=== PATIENT | female | born 1965 | race Caucasian/White ===

== ENCOUNTER 2020-10-15 16:45 | Inpatient (IN) ==
--- OUTSIDE RECORDS SUMMARY | 2020-10-15 16:48 | External Medical Summary | Continuity of Care Document ---
:1965 Author Name Sarah Gonzalez, Provider Address Unavailable Unavailable , Care Team Providers Name Role Phone Lisseth [email or web address] [email or web address] Unavailable Unavailable Unavailable Unavailable Unavailable Assessments Assessed Problems:Breast hypertrophy Problems Breast hypertrophy (611.1) (N62) Allergies and Adverse Reactions No Known Drug Allergies (Allergy) Medications Losartan Potassium 50 MG Oral Tablet Refills: 0 Pravastatin Sodium 10 MG Oral Tablet Refills: 0 Ibuprofen TABS Refills: 0 Procedures History of Tubal Ligation Status: Comple bernardo Immunizations Immunizations not documented Social History - Smoking Status Never smoked tobacco Plan of Treatment Planned Observations Planned Goals not documented Results No Known Results Results not documented Encounters Appointment; Lisseth Fontenot M.D. 12-Feb-2013 9:00 Encounter Diagnosis: Problem not documented
--- OUTSIDE RECORDS SUMMARY | 2020-10-15 16:48 | External Medical Summary | Continuity of Care Document ---
:1965 Author Name Sarah Gonzalez, Provider Address Unavailable Unavailable , Care Team Providers Name Role Phone Lisseth [email or web address] [email or web address] Unavailable Unavailable Unavailable Unavailable Unavailable [...]
--- NOTE | 2020-10-15 18:08 | Emergency Department Note ---
Impression & Plan COVID-19, Myocarditis ED Provider Note NAME: ASHLEY EVANS AGE: 55 SEX: F : 1965 ARRIVES VIA: Walk-In INFORMANT: Patient, ED PROVIDER(S): Robin Moreno MD Chief Complaint: [] HPI: Patient does present with concern for shortness of breath. The patient's recently tested positive on Monday. The patient had symptoms beginning this morning sitting shortness of breath mild nonproductive cough and weakness. The patient's had decreased appetite has not eaten anything today. The patient denies any heart or lung history. The patient has no prior history of DVT or PE. The patient states that shortness of breath that is exertional and improves with rest. Patient denies any chest pains or lower extremity swelling. Patient does not have any fevers or chills. The patient would like to receive a coronavirus test. Patient denies any recent hospitalizations or surgeries. ROS: See HPI for pertinent positives and negatives. A total of 10 systems were reviewed and otherwise negative. Past medical history: See below Surgical history: See below Social history: See below Physical Exam: GENERAL: Tired in appearance, wearing a mask. EYE EXAM: Normal conjunctiva. PERRL, no anisocoria and EOM's grossly intact w/o pain. NECK: Supple, no nuchal rigidity, no adenopathy, non-tender. No signs of meningismus. LUNGS: Clear to auscultation. Normal chest wall mechanics. HEART: NSR, no MRG. ABDOMEN: Abdomen soft, non-tender, normo-active bowel sounds, no masses, no rebound or guarding. BACK: No CVA TTP. SKIN: No rashes and no bruising. UPPER EXTREMITIES: Upper extremities are grossly normal. LOWER EXTREMITIES: Grossly normal, no edema. Negative Homans' sign bilaterally. NEURO EXAM: A&O x3, cranial nerves II-XII grossly intact, normal speech, moves all 4 extremities on command w/o issue. Differential diagnoses: Reactive airway disease, pneumonia, pneumothorax, COPD, CHF, infections, cardiac ischemia, pulmonary embolism, musculoskeletal, gastrointestinal, as well as other pathologies. Course: Patient was seen and evaluated the bedside. Full history physical exam was performed. EKG: Indication: Shortness of breath Normal sinus rhythm, rate of 86, normal intervals, normal axis, possible faint elevations in the lateral leads but not greater than 1 box. No reciprocal garcia ges. Imaging Studies: Radiology results as stated below per my review in the radiologist's interpre tation: XR chest 1V portable HISTORY: 55 years-old Female weakness acute weakness COMPARISON: None TECHNIQUE: Portable AP view of the chest FINDINGS: Cardiac silhouette is mildly enlarged. No pneumothorax, large pleural effusion or lobar airspace consolidation. Ill-defined bibasilar and midlung interstitial opacities. Bones appear grossly intact. Widened left AC joint. IMPRESSION: Interstitial coarsening of the mid and lower lung zones. Chronic scarring versus interstitial pneumonia considered. ACT 112: Negative or not required by law. The above report was generated using voice recognition software. It may contain grammatical, syntax or spelling errors. Electronically signed by: Pascual Ward M.D. 10/15/2020 7:46 PM Dictated: 10/15/201943Transcribed: 10/15/201943 Cardiac monitoring: An order was placed for continuous cardiac monitoring. The monitor shows a rate of 89 with sinus rhythm. MDM: Patient did present with likely coronavirus symptoms. Blood work was obtained. The patient did have a positive Covid test along with a detectable troponin. Patient was given aspirin. I did speak the on-call sales support assistant Dr. Franks and after discussion as the patient does not have any actual chest pain no believe the patient requires heparin at this time. The patient might of had some faint elevations in lateral leads but these do not appear to be concave in nature. Patient does not have reciprocal changes and the patient does not complain of chest pain. Prior EKG is from 2011. No EKG that is recent. I did speak the on-call hospitalist and the patient was admitted to the medicine service by Dr. Rose. Likely an element of the myocarditis. Past Med/Surg History Medical History (Updated 10/15/20 @ 20:40 by Robin Moreno MD) DM2 (diabetes mellitus, type 2) H/O: HTN (hypertension) Family History (Updated 10/15/20 @ 20:36 by Robin Moreno MD) Father Heart disease Social History (Updated 10/15/20 @ 20:36 by Robin Moreno MD) Smoking Status: Never smoker marital status: Current Living Situation: Spouse Feels Safe at Home: Yes Allergies Allergies Allergy/AdvReac Type Severity Reaction Status Date / Time lisinopril AdvReac Cough Unverified 10/15/20 19:57 Home Meds Home Medications Medication Instructions Recorded Confirmed losartan 100 mg PO DAILY 10/15/20 10/15/20 metformin 1,000 mg PO BID 10/15/20 10/15/20 metoprolol tartrate 25 mg PO BID 10/15/20 10/15/20 Results & Data (ED) Vital Signs Vital Signs - 24 hr 10/15/20 16:47 10/15/20 18:33 10/15/20 19:00 Temperature 36.2 C L Temperature Source Temporal Artery Scan Pulse Rate 102 H 84 Respiratory Rate 18 18 Respiratory Effort / Characteristics Non-Labored Respiratory Depth Normal Blood Pressure 161/90 H 125/84 Blood Pressure Mean 113 91 Pulse Oximetry 99 99 100 Oxygen Delivery Method Room Air Sepsis Recent Fever Within 48 Hours No Sepsis New/Unexplained Change in Mental Status No Sepsis Action Taken by Nursing No Action Required 10/15/20 19:12 10/15/20 19:30 10/15/20 20:00 Temperature Temperature Source Pulse Rate 85 89 Respiratory Rate 18 22 Respiratory Effort / Characteristics Respiratory Depth Blood Pressure 102/82 122/86 Blood Pressure Mean 94 94 Pulse Oximetry 99 99 99 Oxygen Delivery Method Room Air Room Air Sepsis Recent Fever Within 48 Hours Sepsis New/Unexplained Change in Mental Status Sepsis Action Taken by Group Home Medications Current Medication List: was personally reviewed by me Laboratory Data Attestation: I reviewed the patient's lab results. Result diagrams: 10/15/20 18:46 10/15/20 18:46 Lab Results 10/15/20 10/15/20 10/15/20 Range/Units 18:46 18:46 18:46 WBC 3.88 L (4.8-10.8) K/uL RBC 5.41 H (4.2-5.4) M/uL Hgb 15.6 (12.0-16.0) g/dL Hct 45.7 (37-47) % MCV 84.5 (80-100) fL MCH 28.8 (25-34) pg MCHC 34.1 (32-36) g/dL RDW Std Deviation 41.0 (36.4-46.3) fL RDW Coeff of Crescencio 13.4 (11.5-14.5) % Plt Count 213 (130-400) K/uL MPV 9.3 (7.4-10.4) fL Immature Gran % (Auto) 0.0 % Neut % (Auto) 75.0 % Lymph % (Auto) 17.0 % [place] % (Auto) 7.7 % Eos % (Auto) 0.0 % Baso % (Auto) 0.3 % Neut # (Auto) 2.91 (1.4-6.5) K/uL Lymph # (Auto) 0.66 L (1.2-3.4) K/uL [place] # (Auto) 0.30 (0.11-0.59) K/uL Eos # (Auto) 0.00 (0-0.5) K/uL Baso # (Auto) 0.01 (0-0.2) K/uL Immature Gran # (Auto) 0.00 (0.00-0.02) K/uL Sodium 134 L (136-145) mmol/L Potassium 4.2 (3.5-5.1) mmol/L Chloride 101 (98-107) mmol/L Carbon Dioxide 25 (21-32) mmol/L Anion Gap 8.0 (3-11) BUN 15 (7-18) mg/dl Creatinine 0.91 (0.6-1.2) mg/dl Est Cr Clr Drug Dosing 77.1 ml/min Est GFR ( Amer) 82.9 Est GFR (Non-Af Amer) 71.5 BUN/Creatinine Ratio 15.9 (10-20) Glucose 236 H (70-99) mg/dl Calcium 8.8 (8.5-10.1) mg/dl Magnesium 1.9 (1.8-2.4) mg/dl Total Bilirubin 0.5 (0.2-1) mg/dl AST 25 (15-37) U/L ALT 25 (12-78) U/L Alkaline Phosphatase 79 (45-117) U/L Troponin I 0.237 H* (0-0.045) ng/ml Total Protein 7.0 (6.4-8.2) gm/dl Albumin 3.3 L (3.4-5.0) gm/dl Globulin 3.7 (2.5-4.0) gm/dl Albumin/Globulin Ratio 0.9 (0.9-2) TSH 0.710 (0.300-4.500) uIu/ml COVID-19 Eval Order Covid19 Sent to [facility] SARS-CoV-2 RNA (RT-PCR) SARS-CoV-2, RNA, NAAT (NEGATIVE) 10/15/20 10/15/20 10/15/20 Range/Units 18:46 19:57 19:57 WBC (4.8-10.8) K/uL RBC (4.2-5.4) M/uL Hgb (12.0-16.0) g/dL Hct (37-47) % MCV (80-100) fL MCH (25-34) pg MCHC (32-36) g/dL RDW Std Deviation (36.4-46.3) fL RDW Coeff of Crescencio (11.5-14.5) % Plt Count (130-400) K/uL MPV (7.4-10.4) fL Immature Gran % (Auto) % Neut % (Auto) % Lymph % (Auto) % [place] % (Auto) % Eos % (Auto) % Baso % (Auto) % Neut # (Auto) (1.4-6.5) K/uL Lymph # (Auto) (1.2-3.4) K/uL [place] # (Auto) (0.11-0.59) K/uL Eos # (Auto) (0-0.5) K/uL Baso # (Auto) (0-0.2) K/uL Immature Gran # (Auto) (0.00-0.02) K/uL Sodium (136-145) mmol/L Potassium (3.5-5.1) mmol/L Chloride (98-107) mmol/L Carbon Dioxide (21-32) mmol/L Anion Gap (3-11) BUN (7-18) mg/dl Creatinine (0.6-1.2) mg/dl Est Cr Clr Drug Dosing ml/min Est GFR ( Amer) Est GFR (Non-Af Amer) BUN/Creatinine Ratio (10-20) Glucose (70-99) mg/dl Calcium (8.5-10.1) mg/dl Magnesium (1.8-2.4) mg/dl Total Bilirubin (0.2-1) mg/dl AST (15-37) U/L ALT (12-78) U/L Alkaline Phosphatase (45-117) U/L Troponin I (0-0.045) ng/ml Total Protein (6.4-8.2) gm/dl Albumin (3.4-5.0) gm/dl Globulin (2.5-4.0) gm/dl Albumin/Globulin Ratio (0.9-2) TSH (0.300-4.500) uIu/ml COVID-19 Eval Order Covid19 [facility]Now [facility] SARS-CoV-2 RNA (RT-PCR) Cancelled SARS-CoV-2, RNA, NAAT POSITIVE A* (NEGATIVE) Administered Medications Discontinued Medications Acetaminophen (Acetaminophen 325 Mg Tab) 650 mg PO NOW STA Stop: 10/15/20 18:22 Last Admin: 10/15/20 18:41 Dose: 650 mg Documented by: [id number] Aspirin (Aspirin Chew 324 Mg) 324 mg PO NOW STA Stop: 10/15/20 19:36 Last Admin: 10/15/20 19:51 Dose: 324 mg Documented by: [id number] Sodium Chloride (Nss 1000ml) 1,000 mls @ 999 mls/hr IV .Q1H1M PATI Stop: 10/15/20 19:30 Last Infusion: 10/15/20 19:42 Dose: 0 mls/hr Documented by: [id number] Admin: 10/15/20 18:41 Dose: 999 mls/hr Documented by: [id number] Ketorolac Tromethamine (Ketorolac 30 Mg/Ml Vial) 30 mg IV NOW STA Stop: 10/15/20 18:22 Last Admin: 10/15/20 18:41 Dose: 30 mg Documented by: [id number] Ondansetron HCl (Ondansetron Inj 2 Mg/Ml 2 Ml Vial) 4 mg IV NOW STA Stop: 10/15/20 18:22 Last Admin: 10/15/20 18:41 Dose: 4 mg Documented by: [id number] Discharge Plan Visit Data Chief Complaint: Shortness of Breath/Dyspnea Stated Complaint: SOB, DIZZINESS ED Provider: Robin Moreno Discharge Problem: COVID-19, Myocarditis Forms Stand Alone Forms: [facility] Prescriptions Prescriptions: No Action metformin 1,000 mg Tablet 1,000 mg PO BID RF: 0 metoprolol tartrate 25 mg Tablet 25 mg PO BID RF: 0 losartan 100 mg Tablet 100 mg PO DAILY RF: 0 Discharge Problem: Myocarditis Qualifiers: Myocarditis type: infective Infective myocarditis organism: viral Chronicity: acute Qualified Code(s): I40.0 - Infective myocarditis
[2020-10-15] MEDS ORDERED: KETOROLAC 30 MG/ML VIAL IV STA (18:21)
[2020-10-15] MEDS ORDERED: ONDANSETRON INJ 2 MG/ML 2 ML VIAL IV STA ×2 (18:21→21:06)
[2020-10-15] MEDS ORDERED: ACETAMINOPHEN 325 MG TAB PO STA (18:21)
[2020-10-15] MEDS ORDERED: SODIUM CHLORIDE 0.9% 1000ML 1,000 ML IV SCH (18:30)
[2020-10-15 18:55] LABS: Basophils # (auto) 0.01 K/uL (0-0.2); Basophils % (auto) 0.3 %; Hematocrit (blood only) 45.7 % (37-47); Hemoglobin 15.6 g/dL (12.0-16.0); Lymphocytes # (auto) 0.66 K/uL (1.2-3.4); Mean Corpuscular Hemoglobin 28.8 pg (25-34); Mean Corpuscular Hgb Conc 34.1 g/dL (32-36); Mean Corpuscular Volume 84.5 fL (80-100); Mean Platelet Volume 9.3 fL (7.4-10.4); Monocytes % (auto) 7.7 %; Neutrophils # (auto) 2.91 K/uL (1.4-6.5); Platelet Count 213 K/uL (130-400); RDW Coefficient of Variation 13.4 % (11.5-14.5); Red Blood Count 5.41 M/uL (4.2-5.4); White Blood Count 3.88 K/uL (4.8-10.8)
[2020-10-15 19:11] LABS: Albumin Level 3.3 gm/dl (3.4-5.0); BUN Creatinine Ratio 15.9 (10-20); Calcium 8.8 mg/dl (8.5-10.1); Creatinine Clr Calc Pharmacy 77.1 ml/min; Est GFR (African American) 82.9; Est GFR (Non-African American) 71.5; Magnesium 1.9 mg/dl (1.8-2.4); Potassium 4.2 mmol/L (3.5-5.1)
[2020-10-15 19:28] LABS: Albumin Globulin Ratio 0.9 (0.9-2); Bilirubin,Total 0.5 mg/dl (0.2-1); Globulin 3.7 gm/dl (2.5-4.0); Thyroid Stimulating Hormone 0.71 uIu/ml (0.300-4.500); Troponin I 0.237 ng/ml (0-0.045)
[2020-10-15] MEDS ORDERED: ASPIRIN CHEW 324 MG PO STA (19:35)
--- NOTE | 2020-10-15 19:47 | XRay Report ---
XR chest 1V portable HISTORY: 55 years-old Female weakness acute weakness COMPARISON: None TECHNIQUE: Portable AP view of the chest FINDINGS: Cardiac silhouette is mildly enlarged. No pneumothorax, large pleural effusion or lobar airspace cons olidation. Ill-defined bibasilar and midlung interstitial opacities. Bones appear grossly intact. Wid ened left AC joint. IMPRESSION: Interstitial coarsening of the mid and lower lung zones. Chronic scarring versus intersti tial pneumonia considered. ACT 112: Negative or not required by law. The above report was generated using voice recognition software. It may contain grammatical, syntax o r spelling errors. Electronically signed by: Pascual Ward M.D. 10/15/2020 7:46 PM
--- NOTE | 2020-10-15 20:35 | History & Physical Report ---
Date of Service October 15, 2020 Assessment & Plan (1) Myopericarditis: 55-year-old female with past medical history type 2 diabetes, hypertension presents with concerns of ongoing shortness of breath found to be Covid positive with concern of viral myopericarditis. Pneumonia due to COVID-19 virus Admit to Covid unit, medical with telemetry Chest x-ray: Interstitial coarsening of the mid and lower lung zones. Chronic scarring versus interstitial pneumonia considered. Isolation precautionsairborne and contact Supplemental O2 as neededgoal saturation 90%. Patient currently satting well on room air Check inflammatory markersESR, CRP, ferritin, D-dimer, LDH Check procalcitonin IV Rocephin, p.o. azithromycin IV dexamethasone 6 mg daily Convalescent plasmapatient consented in the ERform placed in chart Remdesivir ordered (ambulatory pulse ox testing with low 94% in room) Zinc 220 mg p.o. daily IV Pepcid 20 mg twice daily Melatonin nightly Lovenox 40mg twice daily Tylenol as needed for fever Appreciate pulmonology consult Myopericarditis In setting of COVID-19 virus as above Admit to medical with telemetry as above Since patient is Covid positive we are unable to do an echo, however will order a chest CTA Diffuse ST elevations seen on EKG from admission Troponin 0.237 admission. We will continue to trend every 6 hours x2 Findings with low concern for ACS Case discussed with cardiology (Dr. Franks) by ED provider who recommended that patient does not need anticoagulation with heparin at this time Medical management with ASA 325 mg twice daily (1 week), colchicine 0.6 mg twice daily (3 months) IV steroids as above Morphine and nitroglycerin ordered as needed chest pain Restriction from strenuous activity Uric acid level pending Lipid panel, A1c in a.m. Appreciate cardiology consult Hypertension Continue losartan 100 mg, metoprolol tartrate 25 mg twice daily DM2 Holding patient's Metformin, will place on SSI FEN/GI: Regular diet DVT prophylaxis: Lovenox SQ twice daily CODE STATUS: Full code Dispo: Covid unit, medical with telemetry History of Present Illness Chief Complaint: Shortness of breath Primary Care Provider: Billy Fraser DO 55-year-old female with past medical history type 2 diabetes, hypertension presents with concerns of ongoing shortness of breath. This has been progressively worsening over the past few days. Patient has never had anything quite like this ever before in the past. During my examination patient notes that she is short of breath even at rest talking. Breathing issues not related to position either lying back or leaning forward. Patient notes that her tested positive for Covid this past Monday. Patient notes associated fatigue/weakness, decreased appetite, nausea, dizziness. Patient notes that she had URI symptoms of dry cough and rhinorrhea earlier in the week but this has since resolved with taking Delsym. Patient otherwise denies any fevers, chills, sweats, vomiting, diarrhea, loss of taste or smell, chest pain, palpitations, edema, syncope or near syncope, diaphoresis, headache, abdominal pain, recent travel anywhere. Patient with no other acute concerns or complaints. Pertinent labs: Glucose 236, initial troponin 0 0.237, Covid positive. EKG: Per interpretation, diffuse ST elevations seen. Regular rate Chest x-ray: Interstitial coarsening of the mid and lower lung zones. Chronic scarring versus interstitial pneumonia considered. ER course: P.o. Tylenol 650 mg, p.o. aspirin 324 mg, IV Toradol 30 mg, IV Zofran 4 mg, NSS 1 L Allergies Allergy/AdvReac Type Severity Reaction Status Date / Time lisinopril AdvReac Cough Unverified 10/15/20 19:57 Past Med/Surg History Medical History (Updated 10/16/20 @ 15:38 by Gutierrez Wilkinson DO) DM2 (diabetes mellitus, type 2) H/O: HTN (hypertension) Family History (Updated 10/15/20 @ 20:36 by Robin Moreno MD) Father Heart disease Social History (Updated 10/15/20 @ 20:36 by Robin Moreno MD) Smoking Status: Never smoker Hx Alcohol Use: No Preferred Language: Telugu Communication Ability: Effective Scrap [employer]er Required: No Beliefs That Will Affect Care: None marital status: Current Living Situation: Spouse Feels Safe at Home: Yes Assistive Devices: None Review of Systems Review of Systems: All systems reviewed & are unremarkable except as noted in HPI & below Results & Data Results & Data ([facility]) Vital Signs (Past 12 Hours) Vital Signs Temp Pulse Resp BP Pulse Ox 10/15/20 20:00 89 22 122/86 99 10/15/20 19:30 85 18 102/82 99 10/15/20 19:12 99 10/15/20 19:00 84 18 125/84 100 10/15/20 18:33 99 10/15/20 16:47 36.2 C L 102 H 18 161/90 H 99 Laboratory Results Laboratory Results - last 24 hr 10/15/20 10/15/20 10/15/20 18:46 18:46 18:46 WBC 3.88 L RBC 5.41 H Hgb 15.6 Hct 45.7 MCV 84.5 MCH 28.8 MCHC 34.1 RDW Std Deviation 41.0 RDW Coeff of Crescencio 13.4 Plt Count 213 MPV 9.3 Immature Gran % (Auto) 0.0 Neut % (Auto) 75.0 Lymph % (Auto) 17.0 [place] % (Auto) 7.7 Eos % (Auto) 0.0 Baso % (Auto) 0.3 Neut # (Auto) 2.91 Lymph # (Auto) 0.66 L [place] # (Auto) 0.30 Eos # (Auto) 0.00 Baso # (Auto) 0.01 Immature Gran # (Auto) 0.00 Sodium 134 L Potassium 4.2 Chloride 101 Carbon Dioxide 25 Anion Gap 8.0 BUN 15 Creatinine 0.91 Est Cr Clr Drug Dosing 77.1 Est GFR ( Amer) 82.9 Est GFR (Non-Af Amer) 71.5 BUN/Creatinine Ratio 15.9 Glucose 236 H Calcium 8.8 Magnesium 1.9 Total Bilirubin 0.5 AST 25 ALT 25 Alkaline Phosphatase 79 Troponin I 0.237 H* Total Protein 7.0 Albumin 3.3 L Globulin 3.7 Albumin/Globulin Ratio 0.9 TSH 0.710 COVID-19 Eval Order Covid19 Sent to [facility] COVID-19 PCR SARS-CoV-2 RNA (RT-PCR) SARS-CoV-2, RNA, NAAT 10/15/20 10/15/20 10/15/20 18:46 18:46 19:57 WBC RBC Hgb Hct MCV MCH MCHC RDW Std Deviation RDW Coeff of Crescencio Plt Count MPV Immature Gran % (Auto) Neut % (Auto) Lymph % (Auto) [place] % (Auto) Eos % (Auto) Baso % (Auto) Neut # (Auto) Lymph # (Auto) [place] # (Auto) Eos # (Auto) Baso # (Auto) Immature Gran # (Auto) Sodium Potassium Chloride Carbon Dioxide Anion Gap BUN Creatinine Est Cr Clr Drug Dosing Est GFR ( Amer) Est GFR (Non-Af Amer) BUN/Creatinine Ratio Glucose Calcium Magnesium Total Bilirubin AST ALT Alkaline Phosphatase Troponin I Total Protein Albumin Globulin Albumin/Globulin Ratio TSH COVID-19 [facility] COVID-19 PCR Pending SARS-CoV-2 RNA (RT-PCR) Cancelled SARS-CoV-2, RNA, NAAT 10/15/20 19:57 WBC RBC Hgb Hct MCV MCH MCHC RDW Std Deviation RDW Coeff of Crescencio Plt Count MPV Immature Gran % (Auto) Neut % (Auto) Lymph % (Auto) [place] % (Auto) Eos % (Auto) Baso % (Auto) Neut # (Auto) Lymph # (Auto) [place] # (Auto) Eos # (Auto) Baso # (Auto) Immature Gran # (Auto) Sodium Potassium Chloride Carbon Dioxide Anion Gap BUN Creatinine Est Cr Clr Drug Dosing Est GFR ( Amer) Est GFR (Non-Af Amer) BUN/Creatinine Ratio Glucose Calcium Magnesium Total Bilirubin AST ALT Alkaline Phosphatase Troponin I Total Protein Albumin Globulin Albumin/Globulin Ratio TSH COVID-19 Eval Order Nasopharyn COVID-19 PCR SARS-CoV-2 RNA (RT-PCR) SARS-CoV-2, RNA, NAAT POSITIVE A* Code Status & VTE Plan Code Status Full code Supervising Physician Co-Signing Physician Notes Attending addendum: I have physically seen this patient, have supervised the medical residents activities, and agree with the H&P unless as otherwise noted. Assessment and Plan: Pneumonia due to COVID-19 virus with hypoxia- Dexamethasone 6 mg IV daily Convalescent plasma, consent obtained Remdesivir IV per protocol Ventolin HFA 2 puffs 4 times daily, every 2 hours as needed Ceftriaxone 1 g IV daily Azithromycin 500 mg p.o. daily COVID-19 myocarditis- The patient will be admitted to telemetry for serial cardiac enzymes, serial EKG's, cardiac rhythm monitoring and a 2-D echocardiogram with Dopplers. Treatment of COVID-19 as above Consult cardiology Remaining orders and notations as noted Resident Activity Tracking Resident Involvement: Resident Care Provided Care Provided: Adult [facility]
[2020-10-15] MEDS ORDERED: ONDANSETRON INJ 2 MG/ML 2 ML VIAL ONE (21:09)
[2020-10-15] MEDS ORDERED: MoRPHine SULFATE 2 MG/ML CARP IV PRN (23:07)
[2020-10-15] MEDS ORDERED: AZITHROMYCIN 250 MG TAB PO ONE (23:07)
[2020-10-15] MEDS ORDERED: ACETAMINOPHEN 325 MG TAB PO PRN (23:07)
[2020-10-15] MEDS ORDERED: DEXAMETHASONE SOD INJ 10 MG/ML VIAL IV ONE (23:07)
[2020-10-15] MEDS ORDERED: cefTRIAXone SODIUM 1,000 MG/50 ML BAG IV STA (23:07)
[2020-10-15] MEDS ORDERED: ALUMINUM/MAGNESIUM SUSP 30 ML UDC PO PRN (23:07)
[2020-10-15] MEDS ORDERED: NITROGLYCERIN SL 0.4 MG/TAB TAB SL PRN (23:07)
[2020-10-15] MEDS ORDERED: cefTRIAXone SODIUM 2,000 MG in DEXTROSE 5% 50 ML IV ONE (23:15)
[2020-10-15] MEDS ORDERED: DEXAMETHASONE SOD PHOSPHATE 6 MG in SYRINGE 0 ML IV ONE (23:15)
[2020-10-15 23:44] LABS: D Dimer 460 ug/L FEU (0-500); Prothrombin Time 10.9 Seconds (9.0-12.0)
[2020-10-15] MEDS: COLCHICINE 0.6 MG TAB PO SCH (23:51)
[2020-10-15] MEDS: ASPIRIN 325 MG ECTAB PO SCH (23:51)
[2020-10-15] MEDS: FAMOTIDINE 20 MG in SYRINGE 3 ML IV SCH (23:52)
[2020-10-15 23:58] LABS: C Reactive Protein 2.27 mg/dl (0-0.29); Ferritin 422.5 ng/ml (8-388); Uric Acid 6.3 mg/dl (2.6-7.2)
[2020-10-16] MEDS ORDERED: REMDESIVIR 200 MG in SODIUM CHLORIDE 0.9% 210 ML IV ONE
[2020-10-16] MEDS ORDERED: SODIUM CHLORIDE 0.9% 10ML FLUSH IV SCH
[2020-10-16] MEDS ORDERED: ONDANSETRON INJ 2 MG/ML 2 ML VIAL IV STA (01:08)
[2020-10-16] MEDS ORDERED: PROMETHAZINE HCL 25 MG in SODIUM CHLORIDE 0.9% 50 ML IV PRN (01:09)
[2020-10-16] MEDS ORDERED: OPTIRAY 320 125ml IV ONE (03:45)
--- NOTE | 2020-10-16 06:53 | CT Scan Report ---
CT ANGIOGRAPHY OF THE CHEST, PULMONARY EMBOLUS PROTOCOL CLINICAL HISTORY: Evaluate for pulmonary embolus. Covid, shortness of breath. Myopericarditis. COMPARISON STUDY: Chest radiograph October 15, 2020. TECHNIQUE: Following IV administration of 117 mL of Optiray-320, helical axial images of the chest we re obtained utilizing the pulmonary embolus protocol. Maximal intensity projections and sagittal and coronal reformats were viewed on an independent 3D workstation. IV contrast was administered withou t complication. Automated exposure control was utilized for the study. A dose lowering technique wa s utilized adhering to the principles of ALARA. CT DOSE: 524.50 mGycm FINDINGS: No pulmonary emboli are identified. There is no thoracic aortic dissection. Mild cardiomeg israel is noted. A small pericardial effusion. Mildly enlarged mediastinal and bilateral hilar lymph nod es are noted. Index right paratracheal lymph node on image 177 of 256 measures 1.2 cm in short axis t o a rib. Central airways are patent. Moderate multifocal groundglass opacities within the lungs are n oted. There is no pneumothorax or pleural effusion. Mild spotty megaly is noted. There is probable he patic steatosis. There is a 1.2 cm hypodensity within the medial segment of the liver. This is indete rminate but not highly suspicious. IMPRESSION: 1. No pulmonary emboli identified. 2. Multifocal groundglass opacities consistent with viral pneumonia. 3. Small pericardial effusion. Mild cardiomegaly. 4. Mildly enlarged mediastinal and bilateral hilar lymph nodes which are likely reactive. ACT 112: Negative or not required by law. Electronically signed by: Alfred Jolly M.D. 10/16/2020 6:51 AM
--- NOTE | 2020-10-16 08:29 | Pulmonary Consultation ---
Date of Consultation October 16, 2020 Assessment & Plan (1) COVID-19: Impression: 55-year-old female with COVID-19 and shortness of breath. She had an elevated troponin. She is not been hypoxemic. Recommendations: 1. Current recommendations would not recommend convalescent plasma, remdesivir, or dexamethasone given the mild severity of illness. Symptom control and monitoring is recommended at this point time. 2. There is no indication for antimicrobial therapy and recommendations would be to withhold antibiotics. Will discontinue at this point time and follow. Sputum cultures should be obtained if there is concern for secondary infection. 3. Will defer to cardiology treatment for potential myocarditis. Evaluation per primary service. For treatment guidelines, please refer to the [facility] guideline for inpatient treatment of Covid available on the web. Case was discussed with the [facility] hospitalist today. We will sign off at this point time. Feel free to contact us if pulmonary can be of additional assistance History of Present Illness Attending Physician: Gutierrez Wilkinson DO History of Present Illness Asked by hospitalist to evaluate this patient admitted with COVID-19 possible myopericarditis. History is obtained from review of electronic medical record. 55-year-old female with a history of diabetes hypertension and obesity presenting to the emergency room with progressive shortness of breath over the last several days. She has close family contacts and has complained of fatigue and poor appetite. Dry cough and rhinorrhea presenting since last week. She was evaluated with a rapid Covid test in the emergency room which was positive. Her troponin was elevated and was felt to be consistent with potential viral myocarditis. She had a CT angiogram performed which revealed some patchy infiltrates. She has not required supplemental oxygen. Allergies Allergy/AdvReac Type Severity Reaction Status Date / Time lisinopril AdvReac Cough Unverified 10/15/20 19:57 Home Medications Medication Instructions Recorded Confirmed Type losartan 100 mg PO DAILY 10/15/20 10/15/20 History metformin 1,000 mg PO BID 10/15/20 10/15/20 History metoprolol tartrate 25 mg PO BID 10/15/20 10/15/20 History Patient History Medical History (Updated 10/15/20 @ 20:45 by En Song DO) DM2 (diabetes mellitus, type 2) H/O: HTN (hypertension) Family History (Updated 10/15/20 @ 20:36 by Robin Moreno MD) Father Heart disease Social History (Updated 10/15/20 @ 20:36 by Robin Moreno MD) Smoking Status: Never smoker Hx Alcohol Use: No Preferred Language: Mexican Communication Ability: Effective Jingle Writer Required: No Beliefs That Will Affect Care: None marital status: Current Living Situation: Spouse Feels Safe at Home: Yes Assistive Devices: None Review of Systems Review of Systems: Please refer to H&P Physical Exam Physical Exam: Due to coronavirus restrictions and in an effort to prevent exposure to staff and conserve PPE, the patient was not independently examined. Please refer to the admission H&P for full details Results & Data Results & Data ([facility]) Vital Signs (Past 12 Hours) Vital Signs Temp Pulse Pulse Resp BP BP Pulse Ox 10/16/20 07:14 36.7 C 94 H 18 94/77 L 96 10/16/20 06:13 36.8 C 88 20 128/93 98 10/16/20 03:50 36.5 C 84 18 104/84 98 10/15/20 23:00 36.4 C L 93 H 16 120/83 96 10/15/20 22:30 89 13 110/86 98 10/15/20 22:00 88 15 102/73 97 10/15/20 21:55 10/15/20 20:30 83 19 122/86 99 Pulse Ox 10/16/20 07:14 10/16/20 06:13 10/16/20 03:50 10/15/20 23:00 10/15/20 22:30 10/15/20 22:00 10/15/20 21:55 94 10/15/20 20:30 Laboratory Results 10/15/20 18:46 10/15/20 18:46 D-dimer 460 INR 1.0 Ferritin 422 Initial troponin 0 0.237 down to 0.142 CRP 2.27 Procalcitonin undetectable Diagnostic Findings Chest x-ray from 10/15/2020 was in apparently reviewed with coarsening of the bronchovascular markings. CT angiogram from same day independently reviewed. There are patchy groundglass opacities but no pleural effusions. PG Care Time/CCT Total # of Minutes Spent Total Time Spent with Patient: Total time spent is greater than 50% in coordination of care (as documented) at patient's floor/unit and/or counseling patient: Coding Level of Care Code 97054 Office/OBS Consult Lvl 4 Diagnoses COVID-19 U07.1 Time Spent (min) 40
[2020-10-16 08:44] LABS: Hematocrit (blood only) 42.4 % (37-47); Hemoglobin 14.6 g/dL (12.0-16.0); Lymphocytes # (auto) 0.68 K/uL (1.2-3.4); Lymphocytes % (auto) 20.8 %; Mean Corpuscular Hemoglobin 28.9 pg (25-34); Mean Corpuscular Hgb Conc 34.4 g/dL (32-36); Mean Platelet Volume 9.6 fL (7.4-10.4); Monocytes % (auto) 6.1 %; Neutrophils # (auto) 2.39 K/uL (1.4-6.5); Neutrophils % (auto) 73.1 %; Platelet Count 223 K/uL (130-400); RDW Coefficient of Variation 13.7 % (11.5-14.5); RDW Standard Deviation 42.2 fL (36.4-46.3); Red Blood Count 5.05 M/uL (4.2-5.4); White Blood Count 3.27 K/uL (4.8-10.8)
[2020-10-16] MEDS ORDERED: ZINC SULFATE 220 MG CAPSULE PO SCH (09:00)
[2020-10-16] MEDS ORDERED: LOSARTAN POTASSIUM 50 MG TAB PO SCH (09:00)
[2020-10-16] MEDS ORDERED: METOPROLOL TARTRATE 25 MG TAB PO SCH (09:00)
[2020-10-16] MEDS ORDERED: ENOXAPARIN INJ 40 MG/0.4 ML SYR SQ SCH (09:00)
[2020-10-16] MEDS ORDERED: dexAMETHasone 6 MG in SYRINGE 0 ML IV SCH (09:00)
[2020-10-16 09:30] LABS: BUN Creatinine Ratio 21.8 (10-20); Calcium 8.2 mg/dl (8.5-10.1); Creatinine Clr Calc Pharmacy 147.3 ml/min; Est GFR (African American) 96.9; Est GFR (Non-African American) 83.6; Potassium 4.3 mmol/L (3.5-5.1)
[2020-10-16] MEDS: ASPIRIN 325 MG ECTAB PO SCH (09:36)
[2020-10-16] MEDS: FAMOTIDINE 20 MG in SYRINGE 3 ML IV SCH (09:36)
[2020-10-16 09:50] LABS: Beta-Hydroxybutyrate 19.41 mg/dl (0.2-2.81)
[2020-10-16 10:21] LABS: Estimated Average Glucose 209 mg/dl; Hemoglobin A1C 8.9 % (4.5-5.6)
[2020-10-16] MEDS: COLCHICINE 0.6 MG TAB PO SCH (12:00)
[2020-10-16] MEDS: ONDANSETRON INJ 2 MG/ML 2 ML VIAL IV PRN ×2 (13:51→17:59)
[2020-10-16] MEDS ORDERED: fentaNYL citrate 100 MCG/2 ML VIAL ONE (14:25)
[2020-10-16] MEDS ORDERED: niCARdipine HCL INJ 2.5 MG/ML 10 ML AMP ONE (14:25)
[2020-10-16] MEDS ORDERED: HEPARIN (PORCINE) 1000 UNIT/ML 10 ML (CATH LAB USE ONLY) ONE ×2 (14:25→14:36)
--- NOTE | 2020-10-16 14:25 | Electrocardiogram Report ---
Test Reason : Blood Pressure : / mmHG Vent. Rate : 086 BPM Atrial Rate : 086 BPM P-R Int : 154 ms QRS Dur : 064 ms QT Int : 356 ms P-R-T Axes : 047 009 052 degrees QTc Int : 426 ms Normal sinus rhythm Low voltage QRS ST elevation, consider early repolarization, pericarditis, or injury Abnormal ECG When compared with ECG of 26-JUL-2012 10:59, QRS voltage has decreased ST elevation now present Confirmed by Rene Pickard ([id number]) on 10/16/2020 2:24:49 PM Referred By: REFERRED SELF Confirmed By:Rene Pickard
[2020-10-16] MEDS ORDERED: MIDAZOLAM HCL 1 MG/ML 2ML VIAL ONE (14:26)
[2020-10-16] MEDS ORDERED: NITROGLYCERIN/D5W 100MCG/ML 20ML SYR ONE (14:26)
[2020-10-16] MEDS ORDERED: NOREPINEPHRINE BITARTRATE 1 MG/ML 4 ML VIAL (CATH LAB USE ONLY) ONE (14:29)
[2020-10-16] MEDS ORDERED: STAT IV Infusion **Titration per Protocol STA ×2 (14:29→17:57)
[2020-10-16] MEDS ORDERED: NOREPINEPHRINE/D5W 8 MG/508 ML BAG IV SCH (14:30)
[2020-10-16] MEDS ORDERED: ATROPINE SULFATE 0.1 MG/ML 10ML SYR IV ONE (14:54)
[2020-10-16 15:35] LABS: iSTAT Arterial Blood Gas HCO3 17 meg/L (19-24); iSTAT Arterial Blood Gas pCO2 37 mmHg (35-46); iSTAT Arterial Blood Gas pH 7.28 (7.35-7.45); iSTAT Arterial Blood Gas pO2 < 32 mmHg (80-95); iSTAT Carbon Dioxide 19 mmol/L (24-31)
[2020-10-16 15:35] LABS: iSTAT Arterial Blood Gas HCO3 13 meg/L (19-24); iSTAT Arterial Blood Gas pCO2 26 mmHg (35-46); iSTAT Arterial Blood Gas pH 7.31 (7.35-7.45); iSTAT Arterial Blood Gas pO2 171 mmHg (80-95); iSTAT Carbon Dioxide 14 mmol/L (24-31)
--- NOTE | 2020-10-16 15:43 | Hospitalist Progress Note ---
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 Marks, he recommended stopping Remdesivir, Dexamethasone, no plasma as she was not hypoxemic plan was to get echocardiogram, treat for myocarditis with aspirin and colchicine around 2pm I was called to the bedside due to hypotension and crushing chest pain pressures were 60's systolic on cuff laying trendelenberg ordered STAT EKG which showed possible inferior wall STEMI but was not very obvious ordered one liter NSS wide open and started on norepinephrine 0.05 mcg/kg/min called Dr. Ellis who agreed that the patient should go to the label stamper left heart cath showed that coronary arteries are clean however, her EF is severely reduced, global hypokinesis requiring norepinephrine and dopamine to keep pressures normal Dr. Ellis will contact [facility] to see about transfer as she is likely beyond the scope of care that we can provide here Review of Systems Review of Systems: All systems reviewed & are unremarkable except as noted in Subjective Respiratory: + dyspnea Cardiovascular: + chest pain (crushing, pressure sensation), + chest pain at rest, + dyspnea and + orthopnea; no syncope Gastrointestinal: + nausea; no abdominal pain, no vomiting, no constipation and no diarrhea/loose stools Physical Exam Constitutional: well developed, well nourished, + acute distress, + ill appearing and + diaphoretic; + uncomfortable Neck: trachea midline, no thyromegaly Respiratory: normal respiratory effort, lungs clear to auscultation Cardiovascular: RRR, no murmur, no edema Gastrointestinal (Abdomen): normal bowel sounds, soft, nontender, no hepatosp lenomegaly Musculoskeletal: no cyanosis or clubbing, extremities motor strength 5/5 Skin: no rashes, warm and dry Neurologic: patellar DTR's 2+ bilat, sensation intact and PERRL, EOMI, accommodation nl, no face palsy, no dysarthria Psychiatric: A+Ox3, euthymic affect Lymphatic: no cervical or axillary lymphadenopathy Results & Data Results & Data ([facility]) Vital Signs (Past 12 Hours) Vital Signs Temp Pulse Resp BP Pulse Ox 10/16/20 14:20 75/59 L 10/16/20 14:19 81/58 L 10/16/20 13:55 67/52 L 10/16/20 11:55 36.6 C 99 H 16 113/94 97 10/16/20 07:14 36.7 C 94 H 18 94/77 L 96 10/16/20 06:13 36.8 C 88 20 128/93 98 10/16/20 03:50 36.5 C 84 18 104/84 98 Laboratory Results Laboratory Results - last 24 hr 10/15/20 10/15/20 10/15/20 18:46 18:46 18:46 WBC 3.88 L RBC 5.41 H Hgb 15.6 Hct 45.7 MCV 84.5 MCH 28.8 MCHC 34.1 RDW Std Deviation 41.0 RDW Coeff of Crescencio 13.4 Plt Count 213 MPV 9.3 Immature Gran % (Auto) 0.0 Neut % (Auto) 75.0 Lymph % (Auto) 17.0 Hendricks % (Auto) 7.7 Eos % (Auto) 0.0 Baso % (Auto) 0.3 Neut # (Auto) 2.91 Lymph # (Auto) 0.66 L Hendricks # (Auto) 0.30 Eos # (Auto) 0.00 Baso # (Auto) 0.01 Immature Gran # (Auto) 0.00 ESR PT INR D-Dimer POC pH POC pCO2 POC pO2 POC HCO3 POC Total CO2 POC Base Excess POC ABG O2 Sat Sodium 134 L Potassium 4.2 Chloride 101 Carbon Dioxide 25 Anion Gap 8.0 BUN 15 Creatinine 0.91 Est Cr Clr Drug Dosing 77.1 Est GFR ( Amer) 82.9 Est GFR (Non-Af Amer) 71.5 BUN/Creatinine Ratio 15.9 Glucose 236 H Estimat Average Glucose Hemoglobin A1c Uric Acid Calcium 8.8 Magnesium 1.9 Ferritin Total Bilirubin 0.5 AST 25 ALT 25 Alkaline Phosphatase 79 Lactate Dehydrogenase Troponin I 0.237 H* C-Reactive Protein Total Protein 7.0 Albumin 3.3 L Globulin 3.7 Albumin/Globulin Ratio 0.9 Triglycerides Cholesterol LDL Cholesterol, Calc VLDL Cholesterol, Calc HDL Cholesterol Cholesterol/HDL Ratio Beta-Hydroxybutyric Acd Procalcitonin TSH 0.710 COVID-19 Eval Order Covid19 Sent to [facility] COVID-19 PCR SARS-CoV-2 RNA (RT-PCR) SARS-CoV-2, RNA, NAAT Blood Type Antibody Screen 10/15/20 10/15/20 10/15/20 18:46 18:46 19:57 WBC RBC Hgb Hct MCV MCH MCHC RDW Std Deviation RDW Coeff of Crescencio Plt Count MPV Immature Gran % (Auto) Neut % (Auto) Lymph % (Auto) Hendricks % (Auto) Eos % (Auto) Baso % (Auto) Neut # (Auto) Lymph # (Auto) Hendricks # (Auto) Eos # (Auto) Baso # (Auto) Immature Gran # (Auto) ESR PT INR D-Dimer POC pH POC pCO2 POC pO2 POC HCO3 POC Total CO2 POC Base Excess POC ABG O2 Sat Sodium Potassium Chloride Carbon Dioxide Anion Gap BUN Creatinine Est Cr Clr Drug Dosing Est GFR ( Amer) Est GFR (Non-Af Amer) BUN/Creatinine Ratio Glucose Estimat Average Glucose Hemoglobin A1c Uric Acid Calcium Magnesium Ferritin Total Bilirubin AST ALT Alkaline Phosphatase Lactate Dehydrogenase Troponin I C-Reactive Protein Total Protein Albumin Globulin Albumin/Globulin Ratio Triglycerides Cholesterol LDL Cholesterol, Calc VLDL Cholesterol, Calc HDL Cholesterol Cholesterol/HDL Ratio Beta-Hydroxybutyric Acd Procalcitonin TSH COVID-19 Eval Order Covid19 [facility] COVID-19 PCR Pending SARS-CoV-2 RNA (RT-PCR) Cancelled SARS-CoV-2, RNA, NAAT Blood Type Antibody Screen 10/15/20 10/15/20 10/15/20 19:57 23:25 23:25 WBC RBC Hgb Hct MCV MCH MCHC RDW Std Deviation RDW Coeff of Crescencio Plt Count MPV Immature Gran % (Auto) Neut % (Auto) Lymph % (Auto) Hendricks % (Auto) Eos % (Auto) Baso % (Auto) Neut # (Auto) Lymph # (Auto) Hendricks # (Auto) Eos # (Auto) Baso # (Auto) Immature Gran # (Auto) ESR 6 PT INR D-Dimer POC pH POC pCO2 POC pO2 POC HCO3 POC Total CO2 POC Base Excess POC ABG O2 Sat Sodium Potassium Chloride Carbon Dioxide Anion Gap BUN Creatinine Est Cr Clr Drug Dosing Est GFR ( Amer) Est GFR (Non-Af Amer) BUN/Creatinine Ratio Glucose Estimat Average Glucose Hemoglobin A1c Uric Acid Calcium Magnesium Ferritin Total Bilirubin AST ALT Alkaline Phosphatase Lactate Dehydrogenase Troponin I C-Reactive Protein Total Protein Albumin Globulin Albumin/Globulin Ratio Triglycerides Cholesterol LDL Cholesterol, Calc VLDL Cholesterol, Calc HDL Cholesterol Cholesterol/HDL Ratio Beta-Hydroxybutyric Acd Procalcitonin TSH COVID-19 Eval Order Nasopharyn COVID-19 PCR SARS-CoV-2 RNA (RT-PCR) SARS-CoV-2, RNA, NAAT POSITIVE A* Blood Type O Positive Antibody Screen NEGATIVE 10/15/20 10/15/20 10/15/20 23:25 23:25 23:25 WBC RBC Hgb Hct MCV MCH MCHC RDW Std Deviation RDW Coeff of Crescencio Plt Count MPV Immature Gran % (Auto) Neut % (Auto) Lymph % (Auto) Hendricks % (Auto) Eos % (Auto) Baso % (Auto) Neut # (Auto) Lymph # (Auto) Hendricks # (Auto) Eos # (Auto) Baso # (Auto) Immature Gran # (Auto) ESR PT 10.9 INR 1.0 D-Dimer 460 POC pH POC pCO2 POC pO2 POC HCO3 POC Total CO2 POC Base Excess POC ABG O2 Sat Sodium Potassium Chloride Carbon Dioxide Anion Gap BUN Creatinine Est Cr Clr Drug Dosing Est GFR ( Amer) Est GFR (Non-Af Amer) BUN/Creatinine Ratio Glucose Estimat Average Glucose Hemoglobin A1c Uric Acid 6.3 Calcium Magnesium Ferritin 422.5 H Total Bilirubin AST ALT Alkaline Phosphatase Lactate Dehydrogenase 242 Troponin I C-Reactive Protein 2.27 H Total Protein Albumin Globulin Albumin/Globulin Ratio Triglycerides Cholesterol LDL Cholesterol, Calc VLDL Cholesterol, Calc HDL Cholesterol Cholesterol/HDL Ratio Beta-Hydroxybutyric Acd Procalcitonin TSH COVID-19 Eval Order Nasopharyn COVID-19 PCR SARS-CoV-2 RNA (RT-PCR) SARS-CoV-2, RNA, NAAT Blood Type Antibody Screen 10/15/20 10/16/20 10/16/20 23:25 00:34 08:16 WBC 3.27 L RBC 5.05 Hgb 14.6 Hct 42.4 MCV 84.0 MCH 28.9 MCHC 34.4 RDW Std Deviation 42.2 RDW Coeff of Crescencio 13.7 Plt Count 223 MPV 9.6 Immature Gran % (Auto) 0.0 Neut % (Auto) 73.1 Lymph % (Auto) 20.8 Hendricks % (Auto) 6.1 Eos % (Auto) 0.0 Baso % (Auto) 0.0 Neut # (Auto) 2.39 Lymph # (Auto) 0.68 L Hendricks # (Auto) 0.20 Eos # (Auto) 0.00 Baso # (Auto) 0.00 Immature Gran # (Auto) 0.00 ESR PT INR D-Dimer POC pH POC pCO2 POC pO2 POC HCO3 POC Total CO2 POC Base Excess POC ABG O2 Sat Sodium Potassium Chloride Carbon Dioxide Anion Gap BUN Creatinine Est Cr Clr Drug Dosing Est GFR ( Amer) Est GFR (Non-Af Amer) BUN/Creatinine Ratio Glucose Estimat Average Glucose Hemoglobin A1c Uric Acid Calcium Magnesium Ferritin Total Bilirubin AST ALT Alkaline Phosphatase Lactate Dehydrogenase Troponin I 0.142 H* C-Reactive Protein Total Protein Albumin Globulin Albumin/Globulin Ratio Triglycerides Cholesterol LDL Cholesterol, Calc VLDL Cholesterol, Calc HDL Cholesterol Cholesterol/HDL Ratio Beta-Hydroxybutyric Acd Procalcitonin < 0.05 TSH COVID-19 Eval Order Nasopharyn COVID-19 PCR SARS-CoV-2 RNA (RT-PCR) SARS-CoV-2, RNA, NAAT Blood Type Antibody Screen 10/16/20 10/16/20 10/16/20 08:16 08:16 08:16 WBC RBC Hgb Hct MCV MCH MCHC RDW Std Deviation RDW Coeff of Crescencio Plt Count MPV Immature Gran % (Auto) Neut % (Auto) Lymph % (Auto) Hendricks % (Auto) Eos % (Auto) Baso % (Auto) Neut # (Auto) Lymph # (Auto) Hendricks # (Auto) Eos # (Auto) Baso # (Auto) Immature Gran # (Auto) ESR PT INR D-Dimer POC pH POC pCO2 POC pO2 POC HCO3 POC Total CO2 POC Base Excess POC ABG O2 Sat Sodium 132 L Potassium 4.3 Chloride 102 Carbon Dioxide 19 L Anion Gap 11.0 BUN 18 Creatinine 0.80 Est Cr Clr Drug Dosing 147.3 Est GFR ( Amer) 96.9 Est GFR (Non-Af Amer) 83.6 BUN/Creatinine Ratio 21.8 H Glucose 314 H* Estimat Average Glucose 209 Hemoglobin A1c 8.9 H Uric Acid Calcium 8.2 L Magnesium Ferritin Total Bilirubin AST ALT Alkaline Phosphatase Lactate Dehydrogenase Troponin I 0.088 H* C-Reactive Protein Total Protein Albumin Globulin Albumin/Globulin Ratio Triglycerides 170 H Cholesterol 163 LDL Cholesterol, Calc 92 VLDL Cholesterol, Calc 34 HDL Cholesterol 37 Cholesterol/HDL Ratio 4 Beta-Hydroxybutyric Acd 19.41 H Procalcitonin TSH COVID-19 Eval Order Nasopharyn COVID-19 PCR SARS-CoV-2 RNA (RT-PCR) SARS-CoV-2, RNA, NAAT Blood Type Antibody Screen 10/16/20 10/16/20 15:18 15:21 WBC RBC Hgb Hct MCV MCH MCHC RDW Std Deviation RDW Coeff of Crescencio Plt Count MPV Immature Gran % (Auto) Neut % (Auto) Lymph % (Auto) Hendricks % (Auto) Eos % (Auto) Baso % (Auto) Neut # (Auto) Lymph # (Auto) Hendricks # (Auto) Eos # (Auto) Baso # (Auto) Immature Gran # (Auto) ESR PT INR D-Dimer POC pH 7.31 L 7.28 L POC pCO2 26 L 37 POC pO2 171 H < 32 L POC HCO3 13 L 17 L POC Total CO2 14 L 19 L POC Base Excess -13.0 L -9.0 POC ABG O2 Sat 99.0 H 27.0 L Sodium Potassium Chloride Carbon Dioxide Anion Gap BUN Creatinine Est Cr Clr Drug Dosing Est GFR ( Amer) Est GFR (Non-Af Amer) BUN/Creatinine Ratio Glucose Estimat Average Glucose Hemoglobin A1c Uric Acid Calcium Magnesium Ferritin Total Bilirubin AST ALT Alkaline Phosphatase Lactate Dehydrogenase Troponin I C-Reactive Protein Total Protein Albumin Globulin Albumin/Globulin Ratio Triglycerides Cholesterol LDL Cholesterol, Calc VLDL Cholesterol, Calc HDL Cholesterol Cholesterol/HDL Ratio Beta-Hydroxybutyric Acd Procalcitonin TSH COVID-19 Eval Order Nasopharyn COVID-19 PCR SARS-CoV-2 RNA (RT-PCR) SARS-CoV-2, RNA, NAAT Blood Type Antibody Screen Medications Administered Current Inpatient Medications Acetaminophen (Acetaminophen 325 Mg Tab) 650 mg PO Q4H PRN PRN Reason: Pain or Fever Stop: 11/14/20 23:06 Al Hydrox/Mg Hydrox/Simethicone (Aluminum/Magnesium Susp 30 Ml Udc) 15 ml PO Q4H PRN PRN Reason: Dyspepsia Stop: 11/14/20 23:06 Aspirin (Aspirin 325 Mg Ectab) 325 mg PO BID [facility] Stop: 11/14/20 23:14 Last Admin: 10/16/20 09:36 Dose: 325 mg Documented by: Colchicine (Colchicine 0.6 Mg Tab) 0.6 mg PO BID [facility] Stop: 11/14/20 23:06 Last Admin: 10/16/20 12:00 Dose: 0.6 mg Documented by: Enoxaparin Sodium (Enoxaparin Inj 40 Mg/0.4 Ml Syr) 40 mg SQ Q12H [facility] Stop: 11/15/20 08:59 Last Admin: 10/16/20 09:37 Dose: 40 mg Documented by: Famotidine 20 mg/ Syringe 5 mls @ 2.5 mls/min IV BID [facility] Stop: 11/14/20 23:06 Last Admin: 10/16/20 09:36 Dose: 2.5 mls/min Documented by: Promethazine HCl 25 mg/ Sodium (Chloride) 51 mls @ 204 mls/hr IV Q6H PRN PRN Reason: Nausea And Vomiting Stop: 11/15/20 01:08 Norepinephrine Bitartrate (Levophed/D5w) 8 mg in 508 mls @ 17.907 mls/hr IV .Q24H [facility]; Protocol Stop: 11/15/20 14:29 Losartan Potassium (Losartan Potassium 50 Mg Tab) 100 mg PO DAILY [facility] Stop: 11/15/20 08:59 Last Admin: 10/16/20 12:00 Dose: 100 mg Documented by: Melatonin (Melatonin 3 Mg Tab) 3 mg PO HS [facility] Stop: 11/15/20 20:59 Metoprolol Tartrate (Metoprolol Tartrate 25 Mg Tab) 25 mg PO BID [facility] Stop: 11/15/20 08:59 Last Admin: 10/16/20 12:00 Dose: 25 mg Documented by: Morphine Sulfate (Morphine Sulfate 2 Mg/Ml Carp) 2 mg IV Q4H PRN PRN Reason: Chest Pain Stop: 10/29/20 23:06 Nitroglycerin (Nitroglycerin Sl 0.4 Mg/Tab Tab) 0.4 mg SL UD PRN PRN Reason: Chest Pain Stop: 11/14/20 23:06 Ondansetron HCl (Ondansetron Inj 2 Mg/Ml 2 Ml Vial) 4 mg IV Q6H PRN PRN Reason: Nausea Stop: 11/14/20 23:06 Last Admin: 10/16/20 13:51 Dose: 4 mg Documented by: Sodium Chloride (Sodium Chloride 0.9% 10ml Flush) 30 ml IV Q24H [facility] Stop: 10/20/20 00:01 Last Admin: 10/16/20 03:10 Dose: 30 ml Documented by: PG Care Time/CCT Total # of Minutes Spent Total Time Spent: 65 Total Time Spent with Patient: Total time spent is greater than 50% in coordination of care (as documented) at patient's floor/unit and/or counseling patient: Prolonged Care Time Prolonged Care Time: Yes Total Prolonged Care Time: 35 Critical Care Time: Yes Total Critical Care Time: 40 life threatening condition, treated with norepinephrine, fluid boluses, contacted interventional cardiology Coding Level of Care Code 83012 Subseq Hosp Care Lvl 3 Diagnoses Myocarditis due to COVID-19 virus U07.1; I40.0 COVID-19 U07.1 Cardiomyopathy I42.9 Cardiogenic shock R57.0 Additional Codes Critical Care Time - Critical Care Time: Yes ([id number]) Prolonged Care Time - Prolonged Care Time: Yes ([id number])
[2020-10-16 15:52] LABS: iSTAT Arterial Blood Gas HCO3 19 meg/L (19-24); iSTAT Arterial Blood Gas pCO2 42 mmHg (35-46); iSTAT Arterial Blood Gas pH 7.26 (7.35-7.45); iSTAT Arterial Blood Gas pO2 < 32 mmHg (80-95); iSTAT Carbon Dioxide 20 mmol/L (24-31)
--- NOTE | 2020-10-16 15:52 | Post Anesthesia Assessment ---
Date of Service October 16, 2020 Post Sedation Assessment Vital Signs Temp Pulse Pulse Resp BP BP Pulse Ox 10/16/20 14:20 75/59 L 10/16/20 14:19 81/58 L 10/16/20 13:55 67/52 L 10/16/20 11:55 97.9 F 99 H 16 113/94 97 10/16/20 07:14 98.1 F 94 H 18 94/77 L 96 10/16/20 06:13 98.2 F 88 20 128/93 98 10/16/20 03:50 97.7 F 84 18 104/84 98 10/15/20 23:00 97.5 F L 93 H 16 120/83 96 10/15/20 22:30 89 13 110/86 98 10/15/20 22:00 88 15 102/73 97 10/15/20 21:55 10/15/20 20:30 83 19 122/86 99 10/15/20 20:00 89 22 122/86 99 10/15/20 19:30 85 18 102/82 99 10/15/20 19:12 99 10/15/20 19:00 84 18 125/84 100 10/15/20 18:33 99 10/15/20 16:47 97.2 F L 102 H 18 161/90 H 99 Pulse Ox 10/16/20 14:20 10/16/20 14:19 10/16/20 13:55 10/16/20 11:55 10/16/20 07:14 10/16/20 06:13 10/16/20 03:50 10/15/20 23:00 10/15/20 22:30 10/15/20 22:00 10/15/20 21:55 94 10/15/20 20:30 10/15/20 20:00 10/15/20 19:30 10/15/20 19:12 10/15/20 19:00 10/15/20 18:33 10/15/20 16:47 Recovery Score Activity: Moves 4 extremities Respiration: Deep Breath/Cough Circulation: +/-20% PreAnes Value Consciousness: Fully Awake Oxygen Saturation: O2 needed for >90% Discharge Sedation Level of Care: Fast Track Phase II Post Sedation Plan On clinical assessment, the patient appears to have tolerated the sedation without complications. Patient is recovering as anticipated. Patient will continue to be monitored by nursing and may be discharged when sedation discharge criteria are met per below protocol. Upon Completions of procedure up to 15 minutes continue every 5 minute vital signs and the P.A.R. score; then discharge to a Phase I or Fast Track to Phase II per the following guidelines: * Discharge Patient to appropriate Phase II area if PAR is 8 or greater or return to pre- procedure baseline. The post - procedure orders will be as directed. * If PAR score is less than 8 or not return to pre-procedure baseline then patient will follow Phase I monitoring till PAR is reached for Phase II. The Phase I may be done in procedure room or may call to secure a Phase I area. * If naloxone or flumazenil are used for reversal, hold in Phase I for continued monitoring from when last reversal dose was given for a minimum of 60 minutes or longer pending the nurse and/or physician discretion of patient condition before discharge to Phase II. Please call the Sedation Physician to re-evaluate and complete post-note for discharge to Phase II area. Do NOT discharge from procedure sedation or Phase 1 until post- sedation evaluation note is complete by procedure /sedation MD Sedation Discharge Instructions to be given to the patient at discharge to home.
--- NOTE | 2020-10-16 15:54 | XCELERA ---
[id number]
--- NOTE | 2020-10-16 16:00 | Cardiac Catheterization ---
[facility] Data: Prefabricator Cardiac Status Clinical evaluation leading to the procedure CAD Presenation: Sx unlikely to be ischemic Anginal Classification: CCS IV Heart Failure: NYHA Class: CCS III Cardiogenic Shock within 24 Hours: No Cardiac Arrest within 24 Hours: No Imaging Studies Past 6 Months: Yes Stress Studies Past 6 Months: No Diagnostic Physicians Name: Eduardo Ellis MD Status: Emergency Closure Device Percutaneous Entry Location: Femoral Recommendations: Medical Therapy and/or Counseling Intraprocedure Events Significant Disection: No Perforation: No Cardiac Cath Procedure Full Procedure Date October 16, 2020 Pre-Procedure Diagnosis Pre-Procedure Diagnosis: Cardiothoracic Symptom (Cardiogenic shock) AUC Score AUC Score: 9 Post-Procedure Diagnosis Post-Procedure Diagnosis: Normal Coronary Arteries and Elevated Intracardiac Pressures Procedure(s) Performed Procedure(s) Performed: Coronary Angiography and Left Heart Cath It Infrastructure Project Manager Eduardo Ellis MD Bush Regenerator(s) Hernan Estimated Blood Loss Estimated Blood Loss: 15 Medication(s) Medication(s): Fentanyl and Norepinephrine Medication(s): Dobutamine Summary of Findings Indication: 55-year-old woman COVID-19 positive, suspected myopericarditis with worsening chest pain, hypertension. Access: 6 Fr right common femoral artery, 7 Fr right common femoral vein Catheters: JL4, JR4, 7 Fr [place] Findings: LM -long vessel, normal caliber, mid segment luminal irregularities LADmedium caliber, tortuous, no significant disease, SANG II flow Circumflex -small caliber, no significant disease RCA -dominant, medium caliber, 20 to 30% proximal to mid disease, 20 to 30% distal stenosis. Luminal regularities in right PLB RA 21 RV 30/20 PA 29/21 (25) LV 21 PaSat 27% (initial), 34% on 10 mcg AoSat 99% on 6L02 Johnson CO/CI 1.34/0.67 Summary: 1. Mild non-obstructive coronary artery disease 2. Low output cardiogenic shock 3. Right sided heart failure 4. Mildly elevated left sided filling pressures Recommendations: Transfer to ICU Continue norepinephrine, dobutamine Recommend transfer to tertiary center for possible need of mechanical support Hemodynamics Rest Ao:: 88/60/94 Final Ao: 105/66/82 LV: 85/21 Recommendations Recommendations: Medical Therapy and/or Counseling Specimens Specimens: None Radiation Exposure (mGy) 1230 Contrast (mls) 20 Drains Drains: none Anesthesia moderate Procedural Complication(s) None Disposition ICU I attest to the content of the Intraoperative Record and any orders documented therein. Any exceptions are noted below. [facility] Card Cath Procedure Codes Cardiac Catheterization Procedure 1: Cardiovascular Cath Procedures: 24344 Coronaries & LHC (+/-LV) & RHC Therapeutic Services & Ancillary Proc Procedure 1: Cardiovascular Tx and Anc Procedures: 92406 Ultrasonic Guidance Vascular Access Procedure 2: Cardiovascular Tx and Anc Procedures: 24277 Ultrasonic Guidance Vascular Access Moderate Sedation Procedure 1: Sedation/Anesthesia: 41538 Mod Sedation by the same physician;Init15 Min Child Age 5 & Up Procedure 2: Sedation/Anesthesia: 97046 Mod Sedation by the same physician; Ea [id number] Minutes PG Care Time/CCT Total # of Minutes Spent Total Time Spent with Patient: Total time spent is greater than 50% in coordination of care (as documented) at patient's floor/unit and/or counseling patient:
[2020-10-16 16:25] LABS: iSTAT Arterial Blood Gas HCO3 16 meg/L (19-24); iSTAT Arterial Blood Gas pCO2 35 mmHg (35-46); iSTAT Arterial Blood Gas pH 7.28 (7.35-7.45); iSTAT Arterial Blood Gas pO2 < 32 mmHg (80-95); iSTAT Carbon Dioxide 17 mmol/L (24-31)
--- NOTE | 2020-10-16 16:59 | Discharge Summary ---
Date of Service October 16, 2020 Admission HPI Per Admitting Provider 55-year-old female with past medical history type 2 diabetes, hypertension presents with concerns of ongoing shortness of breath. This has been progressively worsening over the past few days. Patient has never had anything quite like this ever before in the past. During my examination patient notes that she is short of breath even at rest talking. Breathing issues not related to position either lying back or leaning forward. Patient notes that her tested positive for Covid this past Monday. Patient notes associated fatigue/weakness, decreased appetite, nausea, dizziness. Patient notes that she had URI symptoms of dry cough and rhinorrhea earlier in the week but this has since resolved with taking Delsym. Patient otherwise denies any fevers, chills, sweats, vomiting, diarrhea, loss of taste or smell, chest pain, palpitations, edema, syncope or near syncope, diaphoresis, headache, abdominal pain, recent travel anywhere. Patient with no other acute concerns or complaints. Pertinent labs: Glucose 236, initial troponin 0 0.237, Covid positive. EKG: Per interpretation, diffuse ST elevations seen. Regular rate Chest x-ray: Interstitial coarsening of the mid and lower lung zones. Chronic scarring versus interstitial pneumonia considered. ER course: P.o. Tylenol 650 mg, p.o. aspirin 324 mg, IV Toradol 30 mg, IV Zofran 4 mg, NSS 1 L Principal Diagnosis COVID myocarditis, cardiogenic shock, low output Discharge Exam Constitutional well developed, well nourished, + acute distress, + ill appearing and + diaphoretic; + uncomfortable Neck trachea midline, no thyromegaly Respiratory normal respiratory effort, lungs clear to auscultation Cardiovascular RRR, no murmur, no edema Gastrointestinal (Abdomen) normal bowel sounds, soft, nontender, no hepatosplenomegaly Musculoskeletal no cyanosis or clubbing, extremities motor strength 5/5 Skin no rashes, warm and dry Neurologic patellar DTR's 2+ bilat, sensation intact and PERRL, EOMI, accommodation nl, no face palsy, no dysarthria Psychiatric A+Ox3, euthymic affect Lymphatic no cervical or axillary lymphadenopathy Discharge Data Allergies Allergy/AdvReac Type Severity Reaction Status Date / Time lisinopril AdvReac Cough Unverified 10/15/20 19:57 Consultations 10/15/20 19:59 ED Decision to Admit Stat 10/15/20 23:07 Consult Cardiology Routine Consult Pulmonology Routine 10/16/20 16:54 Burn CD for patient Stat Procedures Performed Operation Date: 10/16/20 15:00 Actual Procedures p Cath, Right and Left Heart - Ayush Ellis MD s Cineradiography w/Routine Exam - Ayush Ellis MD Ordered Studies 10/15/20 23:07 CT angio chest PE protocol Urgent 10/16/20 14:25 CL Cath Imgs for PACS use only Urgent Hospital Course (1) Myocarditis 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 Marks, he recommended stopping Remdesivir, Dexamethasone, no plasma as she was not hypoxemic plan was to get echocardiogram, treat for myocarditis with aspirin and colchicine around 2pm I was called to the bedside due to hypotension and crushing chest pain pressures were 60's systolic on cuff laying trendelenberg ordered STAT EKG which showed possible inferior wall STEMI but was not very obvious ordered one liter NSS wide open and started on norepinephrine 0.05 mcg/kg/min called Dr. Ellis who agreed that the patient should go to the geoscience laboratory technician left heart cath showed that coronary arteries are clean however, she has right heart failure, low output cardiogenic shock requiring norepinephrine and dobutamine to keep pressures normal Dr. Ellis will contact [facility], accepted by Dr. Mckeon, ICU COVID positive on admission minimal elevation in troponin, peaked 0.2 then down to 0.[address] elevations on EKG due to crushing chest pain/pressure and hypotension at 2pm, taken to geoscience laboratory technician clean coronary arteries but profound right heart failure, low output cardiogenic shock will transfer to [facility] (2) COVID-19: severe infection with cardiomyopathy has multifocal ground glass opacities on CT chest but not hypoxic initially given Remdesivir, dexamethasone but this was stopped today due to lack of hypoxemia (3) Cardiomyopathy: due to myocarditis, no evidence of acute ischemia, clean coronaries (4) Cardiogenic shock: requiring norepinephrine and dobutamine to maintain pressures HR in the 80's, sinus will need to move to ICU while awaiting transportation Total Time Total Time Spent Total Time Spent (In Minutes): 65 minutes Total Time Includes: Examination of the Patient, Discharge Planning, Medication Reconciliation and Communication With Other Providers Discharge Plan Discharge Items Patient Disposition: Transfer Acute Care Hospital Reason For Visit: SOB, DIZZINESS Discharge Diagnosis: COVID 19 myocarditis Low output cardiogenic shock Right heart failure Condition on Discharge: Critical Goals: transfer to [facility] Activity: As commented below Activity Comment: per [facility] on discharge Non-emergency contact: Primary Care Provider Call non-emergency contact if: you have any medication questions Follow-up/Referrals: Billy Fraser DO [Primary Care Provider] - Diet: Nothing by Mouth Addtl Attending Provider Instructions: patient has cardiogenic shock with right heart failure improved with dobutamine and norepinephrine will transfer to [facility] ICU, Dr. Mckeon COVID 19 positive, suspected myocarditis as etiology of acute heart failure Pending Studies at Discharge: No Stand-Alone Forms: My [facility] Skilled Items Patient informed of condition?: Yes DNR: No Discharge Level of Care: Other Communicable Disease: Yes Discharge Prognosis: Stable Lines: Peripheral IV Urinary Catheter: Yes Medications and DC Order Prescriptions: Discontinued metformin 1,000 mg Tablet 1,000 mg PO BID RF: 0 metoprolol tartrate 25 mg Tablet 25 mg PO BID RF: 0 losartan 100 mg Tablet 100 mg PO DAILY RF: 0 Discharge Orders: Discharge Order (Routine); Ordered 10/16/20 Ordered By: Gutierrez Wilkinson Admission Data Admit Date/Time: 10/15/20 21:52 Attending Provider: Gutierrez Wilkinson Admit Provider: En Song Primary Care Provider: Billy Fraser Other Providers: Christoph Reeves ; Rene Pickard ; Dion Marks Coding Level of Care Code D/C Day Management >30 mins Diagnoses Myocarditis due to COVID-19 virus U07.1; I40.0 COVID-19 U07.1 Cardiomyopathy I42.9 Cardiogenic shock R57.0
[2020-10-16] MEDS ORDERED: AZITHROMYCIN 250 MG TAB PO SCH (20:00)
[2020-10-16] MEDS ORDERED: cefTRIAXone SODIUM 2,000 MG in DEXTROSE 5% 50 ML IV SCH (20:00)
[2020-10-16] MEDS ORDERED: MELATONIN 3 MG TAB PO SCH (21:00)
--- NOTE | 2020-10-16 23:30 | Cardiology Consultation ---
Date of Consultation October 16, 2020 Assessment & Plan (1) Cardiogenic shock: Case discussed with Dr. Wilkinson. Acutely hypotensive, unresponsive to fluids. Feel need to rule out acute MD with cardiogenic shock and will proceed with emergent cardiac catheterization. Will obtain echo in forestry farm laborer to evaluate for pericardial effusion/tamponade Right heart catheterization to assess hemodynamics. Further recommendations pending findings. History of Present Illness Attending Physician: Gutierrez Wilkinson DO History of Present Illness Mrs. Contreras is 55 year old woman with HTN, DM2, obesity admitted with URI symptoms/CP found to be Covid19 positive. Mild down-trending troponin and ECG with diffuse ST elevations thought likely to represent myopericarditis. Treated with dexamethasone, toradol. This afternoon after receiving home BP meds became hypotensive to 50s, and endorsed worsening chest pain/pressure. Repeat ECG again showed ST elevations most prominent in inferior leads. Allergies Allergy/AdvReac Type Severity Reaction Status Date / Time lisinopril AdvReac Cough Unverified 10/15/20 19:57 Patient History Medical History (Updated 10/16/20 @ 15:38 by Gutierrez Wilkinson DO) DM2 (diabetes mellitus, type 2) H/O: HTN (hypertension) Family History (Updated 10/15/20 @ 20:36 by oRbin Moreno MD) Father Heart disease Social History (Updated 10/15/20 @ 20:36 by Robin Moreno MD) Smoking Status: Never smoker Hx Alcohol Use: No Preferred Language: Nepalese Communication Ability: Effective Tool And Machine Maintainer Required: No Beliefs That Will Affect Care: None marital status: Current Living Situation: Spouse Feels Safe at Home: Yes Assistive Devices: None Review of Systems Review of Systems: All systems reviewed & are unremarkable except as noted in HPI & below Physical Exam Physical Exam: General: pale, diaphoretic, acutely ill appearing, sleepy, intermittently able to answer questions Eyes: Sclerae anicteric, Lungs: Clear anteriorly Cardiac: Regular rate and rhythm, no murmurs, no rubs Abdomen: Soft, nontender, nondistended, positive bowel sounds. Neuro: Nonfocal Extremities/Vascular: -- Extremities cool -- No edema Results & Data ([facility]) Vital Signs (Past 12 Hours) Vital Signs Temp Pulse Pulse Resp BP BP Pulse Ox 10/16/20 19:02 106 H 15 114/78 97 10/16/20 18:47 85 12 97/43 L 97 10/16/20 18:32 89 15 105/86 96 10/16/20 18:17 85 16 123/90 96 10/16/20 18:02 86 16 100/74 96 10/16/20 17:50 85 14 96/66 L 95 10/16/20 17:47 84 14 125/65 95 10/16/20 17:32 82 17 100/74 96 10/16/20 17:17 85 16 97/72 L 98 10/16/20 17:11 84 14 115/61 98 10/16/20 14:20 75/59 L 10/16/20 14:19 81/58 L 10/16/20 13:55 67/52 L 10/16/20 11:55 97.9 F 99 H 16 113/94 97 PG Care Time/CCT Total # of Minutes Spent Total Time Spent with Patient: Total time spent is greater than 50% in coordination of care (as documented) at patient's floor/unit and/or counseling patient: Coding Level of Care Code 97528 Office/OBS Consult Lvl 5 Diagnoses Cardiogenic shock R57.0
--- NOTE | 2020-10-17 06:18 | Billing Data ---
Date of Service October 17, 2020 Coding Level of Care Code 18203 Initial Inpt Care Lvl 3
--- NOTE | 2020-10-19 08:58 | Electrocardiogram Report ---
Test Reason : Blood Pressure : / mmHG Vent. Rate : 068 BPM Atrial Rate : 068 BPM P-R Int : 176 ms QRS Dur : 062 ms QT Int : 428 ms P-R-T Axes : 049 070 053 degrees QTc Int : 455 ms Poor data quality, interpretation may be adversely affected Normal sinus rhythm Low voltage QRS Septal infarct (cited on or before 15-OCT-2020) ST elevation, consider early repolarization, pericarditis, or injury Abnormal ECG When compared with ECG of 15-OCT-2020 18:33, (unconfirmed) Questionable change in QRS axis Confirmed by Rene Pickard ([id number]) on 10/16/2020 2:56:38 PM Also confirmed by Rene Pickard ([id number]), story editor Pushpa Balderrama ([id number]) on 10/19/2020 8:57:53 AM Referred By: REFERRED SELF Confirmed By:Rene Pickard
== END 2020-10-16 19:02 | disposition short-term general hospital (02) | DRG 177 ==
LOC: ED 16:45 → SUATTDRO 21:52 → EDINP 21:52 → 2S 22:25 → 1E 10-16 17:01